=== PATIENT | female | born 1985 | race Caucasian/White ===

== ENCOUNTER 2018-07-21 13:48 | Emergency (ER) | payer OTHER ==
[2018-07-21 14:12] VITALS: BP 123/46
[2018-07-21] MEDS ORDERED: predniSONE TAB* 20 MG PO ONE (14:39)
--- NOTE | 2018-07-21 14:39 | UC ---
Allergic Reaction HPI - HPI Summary HPI Summary: 32 yo female ate dish with walnuts As she was eating it she developed lip swelling/tightness of throat and wheezing. Her face felt itchy she did not develop a rash borrowed a friends inhaler and used it with good results took benadry currently some mild left periorbital edema ...all other symptoms have resolved - History of Current Complaint Chief Complaint: UCAllergicReaction Stated Complaint: ALLERGIC REACTION Time Seen by Provider: 07/21/18 14:32 Hx Obtained From: Patient Hx Last Menstrual Period: 07/10/18 Onset/Duration: Sudden Onset, Lasting Hours Severity Initially: Severe Severity Currently: Mild Pain Intensity: 1 Pain Scale Used: 0-10 Numeric Character: Swelling, Pruritus Aggravating Factor(s): Nothing Alleviating Factor(s): Antihistamines, Other - inhlaer Associated Signs And Symptoms: Positive: Cough Wheezing - resolved, Difficulty Breathing - redsolved, Hoarseness - resolved, Throat Tightening - resolved. Negative: Abdominal Pain, Chest Pain, Diaphoresis, Lightheadedness, Nausea, Rash , Syncope, Vomiting - Related Hx Possible Reaction To: Food - Allergies/Home Medications Allergies/Adverse Reactions: Allergies Allergy/AdvReac Type Severity Reaction Status Date / Time walnut Allergy Swelling Verified 07/21/18 14:15 Of Face,Lips,& Throat environmental Allergy Hives Uncoded 07/21/18 14:15 Home Medications: Home Medications Adrenal Supplement 1 tab PO DAILY 07/21/18 [History Confirmed 07/21/18] Albuterol Sulfate [Ventolin Hfa] 2 puff INH ONCE PRN 07/21/18 [History Confirmed 07/21/18] Lactase [Lactaid] 1 tab PO AC PRN 07/21/18 [History Confirmed 07/21/18] Turmeric Root Extract [Turmeric] 1 tab PO DAILY 07/21/18 [History Confirmed 06/05] diphenhydrAMINE HCl [Benadryl Allergy] 60 ml PO Q4HR PRN 07/21/18 [History Confirmed 07/21/18] PMH/Surg Hx/FS Hx/Imm Hx Previously Healthy: Yes Respiratory History: Asthma - Surgical History Surgical History: None - Family History Known Family History: Positive: Hypertension, Respiratory Disease - Social History Alcohol Use: Occasionally Substance Use Type: None Smoking Status (MU): Light Every Day Tobacco Smoker Household Exposure Type: Cigarettes - Immunization History Most Recent Tetanus Shot: tdap within last 2 years Review of Systems All Other Systems Reviewed And Are Negative: Yes Constitutional: Positive: Negative Skin: Positive: Negative Eyes: Positive: Negative ENT: Positive: Negative Respiratory: Positive: Negative Cardiovascular: Positive: Negative Gastrointestinal: Positive: Negative Genitourinary: Positive: Negative Motor: Positive: Negative Neurovascular: Positive: Negative Musculoskeletal: Positive: Negative Neurological: Positive: Negative Psychological: Positive: Negative Physical Exam Triage Information Reviewed: Yes Appearance: Well-Appearing, No Pain Distress, Well-Nourished Vital Signs: Initial Vital Signs Temp 99.3 F 07/21/18 14:06 Pulse 90 07/21/18 14:06 Resp 20 07/21/18 14:06 BP 123/46 07/21/18 14:06 Pulse Ox 100 07/21/18 14:06 Vital Signs Reviewed: Yes Eyes: Positive: Conjunctiva Clear ENT: Positive: Hearing grossly normal, Uvula midline, Other - no stridor/no lip or tongue edema. Negative: Pharyngeal erythema, Nasal congestion, Nasal drainage, Trismus, Muffled voice, Hoarse voice, Dental tenderness, Sinus tenderness Dental Exam: Normal Neck: Positive: Supple, Nontender, No Lymphadenopathy Respiratory: Positive: Lungs clear, Normal breath sounds, No respiratory distress Cardiovascular: Positive: RRR, No Murmur Abdomen Description: Positive: No Organomegaly, Soft Bowel Sounds: Positive: Present Musculoskeletal: Positive: Strength Intact, ROM Intact Neurological: Positive: Alert Psychological Exam: Normal Skin Exam: Normal Allergic Reaction Course/Dx - Differential Dx/Diagnosis Provider Diagnosis: Anaphylactic reaction due to tree nuts and seeds, initial encounter Discharge - Sign-Out/Discharge Documenting (check all that apply): Patient Departure All imaging exams completed and their final reports reviewed: No Studies - Discharge Plan Condition: Stable Disposition: HOME Prescriptions: Albuterol HFA INHALER* [Ventolin HFA Inhaler*] 2 puff INH QID #1 mdi EPINEPHrine [Epipen 2-Edvin] 0.3 mg IM ONCE PRN #1 inj PRN Reason: Allergy Symptoms predniSONE [Deltasone 20 MG TAB] 40 mg PO DAILY #8 tab Patient Education Materials: Food Allergy (ED), Anaphylaxis (ED) Referrals: Joseph Vazquez MD [Medical Doctor] - As Soon As Possible Odell Hartmann MD [Primary Care Provider] - If Needed Additional Instructions: take benadryl if needed for itching avoid tree nuts use epipen if you have a severe reaction like you had last pm... if you have to use it go to the ER after the injection use inhaler if need for wheezing - Billing Disposition and Condition Condition: STABLE Disposition: Home
== END 2018-07-21 14:53 | disposition home or self-care (01) ==
LOC: UCEAST 13:48
DX: T78.05XA Anaphylactic reaction due to tree nuts and seeds, initial encounter (principal); J45.909 Unspecified asthma, uncomplicated; F17.200 Nicotine dependence, unspecified, uncomplicated
CPT/HCPCS: 99212; G0463; J7512